=== PATIENT | female | born 1955 | race Caucasian/White ===

== ENCOUNTER 2023-04-04 08:57 | Day surgery (SDC) | payer MEDICARE, BC, SELFPAY ==
[2023-04-04] VITALS (42 sets, daily range): BP systolic 106–220; BP diastolic 62–120; PULSE 53–70; RESP 12–20; TEMP 35.8–36.7; O2SAT 89–100; BMI 31.2; BMI 30.9
--- NOTE | 2023-04-04 09:25 | ED_ITS ---
HPI - Fall General Time Seen by Provider: 09:25 Date Seen: 04/04/23 Chief Complaint: Fall/Minor Trauma Stated Complaint: Fall Time Seen by Provider: 04/04/23 09:18 Source: patient, family and RN notes reviewed Mode of arrival: ambulatory Limitations: no limitations History of Present Illness HPI Narrative: This 67-year-old female is coming to the ER with bilateral wrist trauma, some neck pain after falling down about 9 [address]ed steps. They have an old house, narrow steep stairs. She was tripped by her dog, did go headfirst down the stairs, hit her head on the tile floor on the landing. She states her neck just generally hurts. Both of her wrists hurt. She did hit the right front of her forehead and her cheek bone. She is really having no headache, no visual changes. Her wrists hurt but there is no numbness tingling. She is having no difficulty breathing, no chest pain. No back pain below the neck. Her lower extremities are causing no pain issues whatsoever. She does not drink any alcohol, no mood altering substances, no illicit drug use. She was feeling tired this morning, they at a [employer] green party at their house last night and was tired from that. Internal trauma team activation was called. Patient was ambulatory into the ED of her own accord. She states she probably would not come in except for her wrists. Her came out when he her the fall. There is no reported loss of consciousness. Patient states she knows she has hypertension but does not treated, is not taking anything for it. Otherwise denies any chronic medical issues. complaint: fall Fall witnessed: no Place fall occurred: home Loss of consciousness: No Related Data Previous Rx's Medication Instructions Recorded acetaminophen 500 mg tablet 500 - 1,000 mg (1 - 2 x 500 mg) PO 04/04/23 (Acetaminophen Extra Strength) Q6H PRN pain #60 tabs oxycodone 5 mg tablet 5 mg PO Q4H PRN pain #20 tabs 04/04/23 Allergies Allergy/AdvReac Type Severity Reaction Status Date / Time No Known Drug Allergies Allergy Verified 04/04/23 09:12 Review of Systems Status of ROS: Reports: 6 or more systems reviewed and unremarkable except as noted in History and below PFSH PFSH Social History Smoking Status: Never smoker How often do you have a drink containing alcohol: never AUDIT-C Alcohol total score: 0 Non-prescribed substance use: denies use Exam Const: Vital Signs, click to edit/add: Vital Signs - 24 hr 04/04/23 09:10 04/04/23 09:11 04/04/23 09:12 Temperature 97.6 F Pulse Rate 61 61 Pulse Rate [Pulse Oximeter] 63 Respiratory Rate 20 Blood Pressure 177/120 H Blood Pressure [Ri ght Upper Arm] 177/89 H Pulse Oximetry 97 97 99 Oxygen Delivery Me thod Room Air 04/04/23 09:12 04/04/23 09:15 04/04/23 09:22 Temperature Pulse Rate 59 L 59 L 64 Pulse Rate [Pulse Oximeter] Respiratory Rate Blood Pressure 168/90 H 176/95 H Blood Pressure [Ri ght Upper Arm] Pulse Oximetry 99 97 96 Oxygen Delivery Me thod 04/04/23 09:30 04/04/23 09:32 04/04/23 09:45 Temperature Pulse Rate 63 62 65 Pulse Rate [Pulse Oximeter] Respiratory Rate Blood Pressure 198/104 H Blood Pressure [Ri ght Upper Arm] Pulse Oximetry 97 98 98 Oxygen Delivery Me thod 04/04/23 09:54 04/04/23 10:00 04/04/23 10:05 Temperature Pulse Rate 60 66 62 Pulse Rate [Pulse Oximeter] Respiratory Rate Blood Pressure Blood Pressure [Ri ght Upper Arm] Pulse Oximetry 96 98 98 Oxygen Delivery Me thod 04/04/23 10:14 04/04/23 10:15 04/04/23 10:30 Temperature Pulse Rate 62 66 63 Pulse Rate [Pulse Oximeter] Respiratory Rate Blood Pressure Blood Pressure [Ri ght Upper Arm] Pulse Oximetry 98 98 97 Oxygen Delivery Me thod 04/04/23 10:54 04/04/23 10:55 04/04/23 11:00 Temperature Pulse Rate 64 65 57 L Pulse Rate [Pulse Oximeter] Respiratory Rate Blood Pressure 172/93 H Blood Pressure [Ri ght Upper Arm] Pulse Oximetry 98 97 95 Oxygen Delivery Me thod 04/04/23 11:02 04/04/23 11:11 04/04/23 11:15 Temperature Pulse Rate 59 L 62 59 L Pulse Rate [Pulse Oximeter] Respiratory Rate Blood Pressure 158/88 H 157/82 H Blood Pressure [Ri ght Upper Arm] Pulse Oximetry 95 97 97 Oxygen Delivery Me thod 04/04/23 11:21 04/04/23 11:30 04/04/23 11:31 Temperature Pulse Rate 70 69 67 Pulse Rate [Pulse Oximeter] Respiratory Rate Blood Pressure 174/97 H 160/98 H Blood Pressure [Ri ght Upper Arm] Pulse Oximetry 97 98 97 Oxygen Delivery Me thod Patient's GCS is 15/15, she is alert, interactive, no apparent distress. Nursing staff have ice packs on her wrist. Pupils are equal round reactive, sclerae clear, extraocular muscles intact. She has a right frontal forehead hematoma developing with raised ecchymotic area. She has got abrasion that is superficial, non bleeding over her right zygomatic arch, is palpably tender a long the infraorbital ridge over the zygomatic arch. No drainage from nares or ear canals. TMJs are nontender, she can open and close the jaw without any difficulty. No midline tenderness over neck, no known definitive reproducible tenderness but she states her neck is sore, have asked patient to just hold her neck in position of comfort and not try to move. She is not altered, do trust that she will hold neck and position of comfort. Was able to place my a hand underneath her back, no midline tenderness throughout her spine. Lungs are clear, good air entry. CV regular rate and rhythm, no murmur, normal S1-S2, no S3-S4. Clavicle shoulders nontender, nontender through her arms until her wrist. There is some palpable swelling over the wrist area. Neurovascular is intact distally in the fingers. Abdomen is soft, nontender, no rebound or guarding, no organomegaly. She is mobilizing lower extremities, no visible traumatic change noted. Documenting provider has reviewed patient's vital signs: yes Course Course ED Course: Discussed pain management with patient. She would like something. Will try some IV Toradol to start, 15 mg. We will be getting facial CT, head CT and cervical spine CT. She will have x-rays of both wrists. She will continue to ice the wrist. Will get baseline CBC and basic metabolic panel. Need to rule out facial trauma in fracture, any intracranial trauma as well as cervical spine trauma. Need to rule out wrist fractures. She is currently hemodynamically stable. Do not feel she needs emergent and imminent transfer to a tertiary trauma center at this point. Will continue to monitor her closely. Reevaluation(s) Time of Reevaluation #1: 10:18 Reevaluation #1: Per nursing staff, patient is requiring something stronger for pain. Will put her on pulse oximetry, give her some IV Zofran and give her some IV fentanyl. Awaiting imaging to be done. Consultations Consultation #1: Have spoken with Dr. Zaragoza. We will find out when this patient last date. His PA is going to come over and help splint. It is possible that they could do surgery on her later today or it will be Tuesday if not. Did subsequently go in with the PA and talk to the patient, explained both of her wrists were fractured. Did update her that her head CT is fine, need to review her other images. We discussed the rationale for doing surgery on these risks, will minimize her time in immobilization. Will wait for Ortho to let me know if they are doing surgery today or Tuesday. Will get EKG today in [place] she does go to surgery today. Patient has been NPO since last night. Note Melina the orthopedic PA will be applying short-arm splints for the patient. Orthopedics did advise me that they will be planning to do this surgery later this afternoon. Time: 11:08 Vital Signs Vital signs: Initial Vital Signs Pulse Rate 61 04/04/23 09:10 Blood Pressure 177/120 H 04/04/23 09:10 Blood Pressure Mean 139 H 04/04/23 09:10 Pulse Oximetry 97 04/04/23 09:10 Vital Signs Pulse Rate 61 04/04/23 09:10 Blood Pressure 177/120 H 04/04/23 09:10 Pulse Oximetry 97 04/04/23 09:10 Temperature 97.3 F L 04/04/23 20:50 Pulse Rate 63 04/04/23 20:50 Respiratory Rate 16 04/04/23 20:50 Blood Pressure 145/83 H 04/04/23 20:50 Pulse Oximetry 96 04/04/23 20:50 Oxygen Delivery Method Room Air 04/04/23 20:50 Oxygen Flow Rate 2 04/04/23 16:50 Medications Administered Medications: Discontinued Medications Generic Name Dose Route Start Last Admin Trade Name Freq PRN Reason Stop Dose Admin Bupivacaine HCl 5 ml 04/04/23 15:45 04/04/23 15:45 Bupivacaine 0.25% 30 Ml INJECTION 04/04/23 15:46 5 ml ONCE ONE Administration Fentanyl 25 mcg 04/04/23 10:17 04/04/23 10:27 Fentanyl 100 Mcg/2 Ml Inj IVP 04/04/23 10:18 25 mcg ONCE ONE Administration Fentanyl 50 - 100 mcg 04/04/23 13:26 04/04/23 13:53 Fentanyl 100 Mcg/2 Ml Inj IVP 04/04/23 13:27 50 mcg ONCE ONE Administration Cefazolin Sodium 2 gm/ Sodium 100 mls @ 200 mls/hr 04/04/23 12:59 04/04/23 14:17 Chloride IVPB 04/04/23 13:00 200 mls/hr ONCE ONE Administration Lactated Ringer's 1,000 mls @ 75 mls/hr 04/04/23 17:13 04/04/23 18:03 Lactated Ringers 1000 Ml IV 75 mls/hr .[id number] GARETT Administration Ketorolac Tromethamine 15 mg 04/04/23 09:25 04/04/23 09:48 Ketorolac 15 Mg/Ml Inj IVP 04/04/23 09:26 15 mg ONCE ONE Administration Lidocaine/Epinephrine 5 ml 04/04/23 15:45 04/04/23 15:45 Lidocaine 1%-Epi 1:100,000 20 Ml INFILTRATI 04/04/23 15:46 5 ml ONCE ONE Administration Midazolam HCl 1 - 2 mg 04/04/23 13:26 04/04/23 13:53 Midazolam Hcl 1 Mg/Ml Inj IVP 04/04/23 13:27 2 mg ONCE ONE Administration Ondansetron HCl 4 mg 04/04/23 10:17 04/04/23 10:23 Ondansetron 2 Mg/Ml Inj IVP 04/04/23 10:18 4 mg ONCE ONE Administration Sennosides 2 tab 04/04/23 21:00 04/04/23 21:27 Sennosides 1 Tab Tablet PO Not Given BID GARETT MDM - Fall Lab Data Attestation: I reviewed the patient's lab results. Labs: Lab Results 04/04/23 Range/Units 09:46 WBC 5.14 (4.50-11.00) K/uL RBC 3.97 L (4.00-5.20) m/uL Hgb 12.2 (12.0-16.0) gm/dL Hct 36.2 (33.0-51.0) % MCV 91 (80-100) fL MCH 31 (26-34) pg MCHC 34 (32-36) gm/dL RDW Coeff of Beto 12.3 (11.5-15.5) % Plt Count 207 (140-440) K/uL Neut % (Auto) 71.6 (42.0-72.0) % Lymph % (Auto) 18.1 L (20-44) % Loving % (Auto) 7.2 (0.0-11.0) % Eos % (Auto) 2.3 (0.0-7.0) % Baso % (Auto) 0.6 (0.0-3.0) % Neut # (Auto) 3.68 (1.7-7.0) K/uL Lymph # (Auto) 0.90 (0.90-2.90) K/uL Loving # (Auto) 0.40 (0.00-0.90) K/UL Eos # (Auto) 0.12 (0.00-0.50) K/uL Baso # (Auto) 0.03 (0.00-0.30) K/uL Abs Immat Gran (auto) 0.01 (0.00-0.30) K/uL Imm/Tot Granulo (auto) 0.2 % Sodium 139 (135-149) mmol/L Potassium 3.3 L (3.6-5.1) mmol/L Chloride 109 (96-114) mmol/L Carbon Dioxide 24 (20-32) mmol/L Anion Gap 6 L (7-15) mEq/L BUN 17 (7-30) mg/dL Creatinine 0.6 (0.5-1.5) mg/dL Estimated Creat Clear 47.79 Estimated GFR 99 ml/min Glucose 103 (60-115) mg/dL Calcium 8.7 (8.4-10.6) mg/dL Imaging Data CT scan - head: Attestation: I have reviewed the pertinent imaging results. Radiologist's impression: Patient: Katherine Ricardo MR#: [id number] : 1955 Acct:[id number] Loc: ED Service Date: 04/04/[address]: Ordering Physician: Inga Oliver M.D. Date of Service: 04/04/23 Procedure(s): CT head/brain wo con Accession Number(s): [id number] cc: Provider,Not a Local; Inga Oliver M.D.~ CT HEAD WITHOUT CONTRAST. COMPARISON: NONE INDICATION: FALL, HIT HEAD TECHNIQUE: ROUTINE NONCONTRAST CT BRAIN FINDINGS: NO INTRACRANIAL HEMORRHAGE, MASS OR MASS EFFECT. RIGHT FRONTAL SCALP HEMATOMA. NO SKULL FRACTURE. INCIDENTAL EMPTY SELLA TURCICA NOTED. IMPRESSION: RIGHT FRONTAL SCALP HEMATOMA. NO INTRACRANIAL HEMORRHAGE. Dictated By: Serafin Phan M.D. Signed By: <Electronically signed by Serafin Phan M.D.> 04/04/[address] cervical spine: Attestation: I have reviewed the pertinent imaging results. Radiologist's impression: Patient: Katherine Ricardo MR#: [id number] : 1955 Acct:[id number] Loc: ED Service Date: 04/04/[address]: Ordering Physician: Inga Oliver M.D. Date of Service: 04/04/23 Procedure(s): CT cervical spine wo con Accession Number(s): [id number] cc: Provider,Not a Local; Inga Oliver M.D.~ CERVICAL SPINE CT, NONCONTRAST INDICATION: FALL, NECK PAIN TECHNIQUE: ROUTINE NONCONTRAST CT CERVICAL SPINE COMPARISON: NONE FINDINGS: THE ODONTOID IS INTACT. NO VERTEBRAL BODY COMPRESSION FRACTURE OR FACET MALALIGNMENT. 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 THE OCCIPITAL CONDYLES AND ANTERIOR ARCH OF C1 ARE MAINTAINED. NO SPINOUS PROCESS FRACTURE. NO APICAL PNEUMOTHORAX. CALCIFIED LEFT THYROID LOBE NODULE. NO CERVICAL ADENOPATHY. IMPRESSION: NO CERVICAL SPINE FRACTURE. LEFT THYROID LOBE NODULE. NONEMERGENT THYROID ULTRASOUND RECOMMENDED. Dictated By: Serafin Phan M.D. Signed By: <Electronically signed by Serafin Phan M.D.> 04/04/[address] facial bones: Attestation: I have reviewed the pertinent imaging results. Radiologist's impression: [place] [address] CT Scan Report Patient: Katherine Ricardo MR#: [id number] : 1955 Acct:[id number] Loc: ED Service Date: 04/04/[address]: Ordering Physician: Inga Oliver M.D. Date of Service: 04/04/23 Procedure(s): CT facial bones wo con Accession Number(s): [id number] cc: Provider,Not a Local; Inga Oliver M.D.~ CT FACIAL BONES WITHOUT CONTRAST. INDICATION: FALL, PAIN. COMPARISON: NONE. PROCEDURE: ROUTINE NON-CONTRAST CT FACIAL BONES. FINDINGS: THERE IS A RIGHT FRONTAL SCALP HEMATOMA. NO FRACTURE. INTACT TEMPORAL BONES. INTACT MIDDLE EAR CAVITIES AND MASTOID AIR CELLS. SINUSES ARE CLEAR. NO FACIAL BONE FRACTURE IS PRESENT. CHRONIC CHANGES AT THE RIGHT TMJ. IMPRESSION: NO FACIAL BONE FRACTURE. RIGHT FRONTAL SCALP HEMATOMA. XR wrists: Attestation: I have reviewed the pertinent imaging results. My impression: See bilateral wrist fractures on my preliminary review. Radiologist's impression: RIGHT WRIST THREE VIEWS. COMPARISON: NONE INDICATION: FALL, PAIN FINDINGS: THERE IS A DORSALLY IMPACTED FRACTURE OF THE DISTAL RADIAL METAPHYSIS. ADDITIONAL FRACTURE OF THE DISTAL ULNA NOTED ABOVE METAPHYSIS INVOLVING THE DISTAL DIAPHYSIS. DEGENERATIVE CHANGES ARE PRESENT AT THE 1ST CARPOMETACARPAL JOINT WITH HYPERTROPHIC SPURRING. IMPRESSION: DORSALLY IMPACTED DISTAL RADIAL METAPHYSEAL FRACTURE AND DISTAL ULNAR DIAPHYSEAL FRACTURE. LEFT WRIST THREE VIEWS COMPARISON: NONE INDICATION: FALL, PAIN FINDINGS: THERE IS A DORSALLY IMPACTED DISTAL RADIAL METAPHYSEAL FRACTURE. ADDITIONAL FRACTURE AT THE ULNAR STYLOID IS ALSO SUSPECTED. DEGENERATIVE CHANGES ARE PRESENT AT THE 1ST CARPOMETACARPAL JOINT. SOFT TISSUE SWELLING NOTED. IMPRESSION: DORSALLY IMPACTED DISTAL RADIAL METAPHYSEAL FRACTURE AND POSSIBLE FRACTURE AT THE ULNAR STYLOID. ECG Data Attestation: I personally reviewed and interpreted this ECG as follows: (Normal sinus rhythm, 63 beats per minute. No concerning change on this EKG, some mild artifact seen. QT corrected 433 milliseconds.) ECG interpretation date: 04/04/23 ECG interpretation time: 11:52 Prior ECG tracings: not available for review Critical Care Time Critical Care Time Critical Care Time: No Discharge Plan Discharge Clinical Impression: Hematoma of frontal scalp Qualifiers: Encounter type: initial encounter Qualified Code(s): S00.03XA - Contusion of scalp, initial encounter Closed fracture of both wrists Qualifiers: Encounter type: initial encounter Qualified Code(s): S62.101A - Fracture of unspecified carpal bone, right wrist, initial encounter for closed fracture Fall Qualifiers: Encounter type: initial encounter Qualified Code(s): W19.XXXA - Unspecified fall, initial encounter Patient Disposition: XFER to OR Condition: Stable
[2023-04-04] MEDS: KETOROLAC 15 MG/ML inj IVP (09:48)
[2023-04-04 10:08] LABS: Basophils Absolute Auto 0.03 K/uL (0.00-0.30); Basophils Percent Auto 0.6 % (0.0-3.0); Eosinophils Absolute Auto 0.12 K/uL (0.00-0.50); Eosinophils Percent Auto 2.3 % (0.0-7.0); Hematocrit 36.2 % (33.0-51.0); Hemoglobin* 12.2 gm/dL (12.0-16.0); Immature Granulocytes Abs Auto 0.01 K/uL (0.00-0.30); Immature Granulocytes Pct Auto 0.2 %; Lymphocytes Percent Auto 18.1 % (20-44); Mean Corpuscular HGB Conc 34 gm/dL (32-36); Mean Corpuscular Hemoglobin 31 pg (26-34); Mean Corpuscular Volume 91 fL (80-100); Monocytes Percent Auto 7.2 % (0.0-11.0); Neutrophils Absolute Auto 3.68 K/uL (1.7-7.0); Neutrophils Percent Auto 71.6 % (42.0-72.0); Platelet Count* 207 K/uL (140-440); RDW Coefficient of Variation % 12.3 % (11.5-15.5); Red Blood Count 3.97 m/uL (4.00-5.20); White Blood Count* 5.14 K/uL (4.50-11.00)
[2023-04-04 10:13] LABS: Chloride* 109 mmol/L (96-114); Sodium* 139 mmol/L (135-149)
[2023-04-04 10:14] LABS: Potassium* 3.3 mmol/L (3.6-5.1)
[2023-04-04 10:15] LABS: Slide Review Reflex No
[2023-04-04 10:16] LABS: Anion Gap 6 mEq/L (7-15); Blood Urea Nitrogen* 17 mg/dL (7-30); Carbon Dioxide* 24 mmol/L (20-32); Creatinine* 0.6 mg/dL (0.5-1.5); Est. Creatinine Clearance* 47.79; Estimated Glomerular Filt Rate 99 ml/min
[2023-04-04 10:17] LABS: Calcium* 8.7 mg/dL (8.4-10.6); Glucose* 103 mg/dL (60-115)
[2023-04-04] MEDS: ONDANSETRON 2 MG/ML inj 4 MG IVP (10:23)
[2023-04-04] MEDS: fentaNYL 100 MCG/2 ML inj 25 MCG IVP (10:27)
--- NOTE | 2023-04-04 13:30 | XR_ITS ---
Patient: DIANA HERNANDEZ Facility:?[facility] Patient ID:?[id number] Site Patient ID:?[id number]. Site :?1955 Study:?XRay-Extremity Right WRIST INTRA OP-04/04/2023 6:50:51 PM Ordering Physician:ELIANE Final Report: Indication: ORIF RT WRIST Technique: Two fluoroscopic images of the right wrist. Fluoroscopic time 15.6 seconds. IMPRESSION: Fluoroscopic guidance for open reduction internal fixation of distal radial fracture. Dictated by Serafin Phan MD @ 04/08/2023 6:09:15 AM Signed by:?Serafin Phan MD @04/08/2023 6:09:15 AM (Electronic Signature)
--- NOTE | 2023-04-04 13:30 | XR_ITS ---
Patient: DIANA HERNANDEZ Facility:?[facility] Patient ID:?[id number] Site Patient ID:?[id number]. Site :?1955 Study:?XRay-Extremity Left WRIST INTRA OP-04/04/2023 6:48:13 PM Ordering Physician:ELIANE Final Report: Indication: ORIF left wrist Technique: Five fluoroscopic images of the left wrist. Fluoroscopic time 32.2 seconds. IMPRESSION: Intraoperative fluoroscopic guidance for open reduction internal fixation of distal radial fracture. Dictated by Serafin Phan MD @ 04/08/2023 6:07:34 AM Signed by:?Serafin Pahn MD @04/08/2023 6:07:34 AM (Electronic Signature)
[2023-04-04] MEDS: MIDAZOLAM HCL 1 MG/ML inj IVP (13:53)
[2023-04-04] MEDS: fentaNYL 100 MCG/2 ML inj IVP (13:53)
--- NOTE | 2023-04-04 13:54 | SUR.PREOP ---
TIME?OUT:?1352 PT/RN/MDA?VERIFICATION?OF?SURGICAL?SITE,?PROCEDURE,?AND?CONSENT OBTAINED?PRIOR?TO?INVASIVE?PROCEDURE. all in agreement.
--- NOTE | 2023-04-04 14:16 | W.PM.NB ---
Nerve Block Nerve Block Time Seen by Provider: 13:54 Date Seen: 04/04/23 Type of block requested by surgeon for post-operative analgesia: axillary Side: right Time out performed: Yes Verification of patient name: Yes Verification of date of : Yes Site marking: site marked Name of person performing procedure: Geovanni Continuous monitoring Was continuous monitoring of O2 sat, B/P, bias binding folder, recorded every 15 minutes?: Yes Procedure Checklist: sterile prep, needles and gloves Ultrasound guided. Images saved: Yes Medications given in 5ml increments after negative aspiration: Ropivicaine %: 0.5 mL: 30 Needle gauge: 22 Patient tolerated procedure well: Yes Additional comments: Needle noted adjacent to nerve Block Charges Block Charge (with Pro Fee): Brachial Plexus Use of Ultrasound Machine for Block: Yes- US Guidance/pain block
[2023-04-04] MEDS: CEFAZOLIN 2 GM in 0.9 % SODIUM CHLORIDE Mini-bag 100 ML IVPB (14:17)
--- NOTE | 2023-04-04 15:41 | P.ORPRC_ITS ---
Procedure Note Date of procedure: 04/04/23 Procedure: PREOPERATIVE DIAGNOSES: 1. Left distal radius fracture - displaced, extra-articular 2. Right distal radius fracture - displaced, extra-articular 3. Right distal ulnar fracture POSTOPERATIVE DIAGNOSES: 1. Left distal radius fracture - displaced, extra-articular 2. Right distal radius fracture - displaced, extra-articular 3. Right distal ulnar fracture NAME OF OPERATION: 1. Left distal radius open reduction internal fixation (extra-articular, 2 part fracture) 2. Right distal radius fracture open reduction internal fixation (performed simultaneously by Dr. Ortiz and dictated separately). SURGEON: Jd Escalante MD [employer] REPAIRER: Melina Winston P.A.-C. - An per diem physical therapist assistant was critical for this case to aide in patient positioning, limb manipulation, tissue retraction, closure, and splinting. ANESTHESIA: General with right upper extremity regional nerve block IMPLANTS: Mariella [employer] DVR Crosslock distal radius locking plate with 2.7mm threaded and nonthreaded locking pegs and 2.7mm proximal nonlocking screws. TOURNIQUET: 53 minutes at 250 mmHg. INDICATIONS: The patient is a pleasant, 67-year-old female who sustained bilateral wrist injuries after a fall. She was subsequently seen in the [facility] Emergency Department, where x-rays revealed a closed, displaced left distal radius fracture; a closed, displaced right distal radius fracture; and a mildly displaced distal ulna fracture. Given these findings, surgery was recommended to stabilize both distal radius fractures. Prior to surgery the risks and benefits of the procedure were discussed with patient, all questions were answered, and informed consent was obtained. FINDINGS: Closed, displaced, extra-articular left distal radius fracture. PROCEDURE: Patient was seen preoperatively, and operative sites were marked. A right upper extremity regional nerve block was performed by anesthesia staff. The patient was then brought to the operating room and placed supine on the operating table. General anesthesia was obtained the patient was provided with 2 g of IV Ancef preoperatively for prophylaxis. The left upper extremity was prepped and draped in usual sterile fashion. A surgical time-out was performed confirming patient identity, surgical site, and surgical procedure. The left operative extremity was exsanguinated, and the tourniquet inflated to 250 mmHg. A longitudinal incision was made overlying the FCR tendon. The sheath of the FCR tendon was incised in line with the surgical incision, and the tendon retracted ulnarly. The deep fascial sheath was also released in line with the surgical incision. The FPL was retracted ulnarly and the pronator quadratus was sharply released along its radial and distal margins, subperiosteally elevated, and retracted ulnarly. The fracture was irrigated and cleared of interposed periosteum and fracture hematoma. A reduction was performed and the appropriate plate was selected. Temporary stabilization allowed C-arm fluoroscopy to confirm proper fracture reduction and plate positioning. The proximal oblong hole was filled with a nonlocking screw followed by multiple distal locking pegs being careful to keep these in subchondral bone and extraarticular. Finally, the remaining proximal shaft screws were drilled and placed. Fluoroscopic imaging confirmed near anatomic reduction of the fracture with good placement and length of the screws. At this stage, the wound was thoroughly irrigated again with normal saline. The pronator quadratus was repaired over the plate with 3-0 Vicryl [id number] interrupted sutures. The tourniquet was released and hemostasis was achieved with electrocautery. Closure was then completed with 3-0 Vicryl for the subcutaneous, and 4-0 statafix for subcuticular closure. Subcutaneous tissues were then injected with 0.25% Marcaine. Sterile dressings were applied, followed by application of a short-arm splint. After the right distal radius open reduction internal fixation was completed by Dr. Ortiz, the patient was awoken from anesthesia and transferred to PACU in stable condition. PLAN: 1. Elevate operative extremity. 2. Ice, acetaminophen, or ibuprofen as needed for pain control. 3. Oxycodone as needed for more severe pain 4. No weight-bearing on either upper extremity. 5. Follow up in Orthopedic Clinic in 2 weeks for wound check and splint removal.
[2023-04-04] MEDS: BUPIVACAINE 0.25% 30 ML 5 ML INJECTION (15:45)
--- NOTE | 2023-04-04 15:49 | W.ANESCHARGE ---
Anesthesia Charges Start Date/Time Anesthesia Start Date: 04/04/23 Anesthesia Start Time: 14:04 Stop Date/Time Anesthesia Stop Date: 04/04/23 Anesthesia Stop Time: 16:11
--- NOTE | 2023-04-04 16:16 | P.ORPRC_ITS ---
Procedure Note Date of procedure: 04/04/23 Procedure: PREOPERATIVE DIAGNOSES: 1. Bilateral distal radius fracture extra-articular, comminuted, dorsally angulated and displaced. POSTOPERATIVE DIAGNOSES: 1. Bilateral distal radius fracture extra-articular, comminuted, dorsally angul ated and displaced. NAME OF OPERATION: 1. Right distal radius open reduction with internal fixation of extra-articular dorsally angulated and displaced distal radius fracture 2. Right distal ulna metadiaphyseal fracture, closed treatment. 2. 43783 - intraoperative fluoroscopy up to 1 hour. * of note, this was a bilateral distal radius ORIF done simultaneously with the 2 surgeons and 2 assistants. Each team operating independently on each side. I (and my team) did the right distal radius ORIF. SURGEON: Devon Ortiz MD HOSPITAL SECRETARY: Kelli Micehle PA-C - Of note, an assistant professor of geography was critical for this case to aide in patient positioning, limb manipulation, tissue retraction, closure, and splinting. ANESTHESIA: Supraclavicular block IMPLANTS: Arthrex distal radius locking plate with 2.7mm distal locking pegs and 3.5mm proximal nonlocking and locking screws. TOURNIQUET: 34 minutes at 225 torr. INDICATIONS: The patient is a pleasant, 67-year-old female who sustained a right wrist injury after a fall. They had difficulty with use of the extremity and deformity. Workup included xrays which revealed an unstable fracture. Given these findings, surgery was recommended to stablize the fracture. FINDINGS: Closed, dorsally angulated and displaced mildly comminuted transverse metaphyseal distal radius fracture. Also a closed, ulnar diaphyseal oblique fracture. This was treated closed. It was well aligned following the distal radius ORIF. PROCEDURE: Following a thorough discussion of risks, benefits, and alternatives, consent was obtained and the operative extremity was marked. The patient was brought to the operating room and placed supine on the operating table. Induction of anesthesia was achieved. Appropriate time out was performed identifying proper patient, site and procedure. 2 g IV Ancef was administered within 1 hour of incision preoperatively. *Again, the left upper extremity distal radius ORIF was being performed by Dr. Jd Escalante with Melina Winston PA-C assisting. The tourniquet had been up approximately 40 minutes at the time that we began our side. They were able to release the tourniquet approximately 12 minutes later. The right upper extremity was prepped and draped in the appropriate sterile fashion using ChloraPrep prep. The limb was exsanguinated and the tourniquet inflated. A longitudinal incision was made overlying the FCR tendon. Sharp incision through skin and subcutaneous tissue allowed identification of the FCR tendon. The superficial sheath was sharply divided, the tendon retracted ulnarly, and the deep fascial sheath also released. The FPL was retracted ulnarly and the pronator quadratus was sharply released from the radial border of the radius and subperiosteally elevated. The fracture was encountered and cleared of interposed periosteum / fracture hematoma. A reduction was performed and the appropriate plate selected. Temporary stabilization allowed C-arm fluoroscopy to confirm proper fracture reduction and plate positioning. The oblong hole was filled with a nonlocking screw followed by multiple distal locking pegs being careful to keep these in subchondral bone and extraarticular. Finally, the remaining proximal shaft screws were drilled and placed. Fluoroscopic imaging confirmed the improved position and showed the fracture to be stable. At this stage, the wound was thoroughly irrigated with normal saline. Closure performed with 0 Vicryl for the pronator quadratus, followed by deflation of the tourniquet. All major bleeding points were cauterized. Closure was then completed with 3-0 Vicryl for the subcutaneous, and 4-0 statafix for subcuticular closure. Dressings were applied along with a volar/dorsal splint. The patient was awoken from anesthesia and transferred to PACU in stable condition. PLAN: 1. Elevate operative extremity. 2. Ice, acetominphen or ibuprofen PRN. 3. Oxycodone for pain as needed. 4. Follow up with PA visit in 10-12 days. Ideally some type of immobilization (splint or cast) x3 weeks total postop. Then transition of bilateral upper extremity wrist braces. She will benefit from OT referral at that 3 week visit with cast removal.
--- NOTE | 2023-04-04 16:28 | W.ANESCHARGE ---
Anesthesia Charges Start Date/Time Anesthesia Start Date: 04/04/23 Anesthesia Start Time: 14:04 Stop Date/Time Anesthesia Stop Date: 04/04/23 Anesthesia Stop Time: 16:11
[2023-04-04] MEDS: LACTATED RINGERS 1000 ML 1,000 ML 75 ML IV (18:03)
--- NOTE | 2023-04-04 19:22 | PC.NURSE ---
End of shift [id number] ? Pt arrived from PACU at approximately 1650. Pt fatigued, rousable to name. Pt denied pain, SOB, nausea. Pt observed to sleep during shift. Family at bedside. Capillary refill present in bilateral hands. Pt not out of bed during shift. Pt did not eat or drink during shift. ?
--- NOTE | 2023-04-04 21:57 | PC.NURSE ---
Pt discharged at 2146 via private vehicle driven by . Prior to discharge, pt's pain was controlled as she denied pain when asked with no nonverbal signs of pain noted. CWMS to L hand intact. Pt unable to wiggle fingers of R hand due to nerve block administered to R arm prior to surgery today. Capillary refill noted to be less than 3 seconds to bilateral hands. IV to L foot removed prior to discharge. Pt denied nausea when asked prior to discharge and was able to eat 25% of supper along with tolerating ice water. Pt voided 600 mL straw urine and was able to transfer with SBA. Pt noted to be alert & oriented x 4. Pt discharged with sling to R arm and discharge instructions were reviewed prior to discharge. Dressings to bilateral wrists noted to be C/D/I prior to discharge.
--- NOTE | 2023-04-07 09:39 | P.ORCN_ITS ---
History of Present Illness HPI Time Seen by Provider: 12:30 Date Seen: 04/04/23 Consult date: 04/04/23 Requesting physician: Inga Oliver Consult reason: fracture Chief complaint: Fall Narrative: Katherine presented to [facility] ED this morning with bilateral wrist pain post-fall down the stairs after being tripped by her dog. Denies loss of consciousness. Pain is well managed with IV fentanyl. Reports minimal bilateral wrist pain at rest; pain increases with slight movement. Katherine, her and I reviewed her images together, which show bilateral wrist fractures (reference Results section for detailed description). Last ate 2300 on 04/03/2023. Patient denies history of diabetes mellitus. Not taking a blood thinner. Katherine states she has a history of Reflex Sympathetic Dystrophy (also known as Complex Regional Pain Syndrome) post-carpal tunnel release and she is quite concerned this will occur again during the postoperative period. Left hand dominant. Patient also hit her head on the tile floor during this fall. ED Physician ordered facial CT, head CT and cervical spine CT. EKG also pending. [facility] Social History Smoking Status: Never smoker How often do you have a drink containing alcohol: never AUDIT-C Alcohol total score: 0 Non-prescribed substance use: denies use Meds Home Medications and Allergies Allergies Allergy/AdvReac Type Severity Reaction Status Date / Time No Known Drug Allergies Allergy Verified 04/04/23 09:12 Ortho Exam Narrative Exam Narrative: Patient is alert and oriented x3. No acute distress. Converses with non-labored breathing. Bilateral hand/wrists/forearms resting on a pillow on her chest. Bilateral wrist exam: Obvious deformity bilateral wrists. Mild-moderate swelling bilaterally. No ecchymosis. No open wounds. No abrasions. No erythema, induration. Moderate-severe pain over fracture sites. ROM and strength testing deferred for obvious reasons. CMS intact with 2+ radial pulse bilaterally. Sensation confirmed distally. Const Documenting provider has reviewed patient's vital signs: yes Results Diagnostic results Wrist/Hand x-ray: report reviewed and image reviewed (3-view left wrist images were reviewed from [place] [facility] dated 04/04/23. These were ordered by a different physician, were reviewed by me, were corroborated with the radiology report, and show: a closed, acute left distal radial metaphyseal fracture with 25 degrees dorsal angulation.) Additional Comments: Also, 3-view right wrist images were reviewed from [place] dated 04/04/23. These were ordered by a different physician, were reviewed by me, were corroborated with the radiology report, and show: a closed, acute right distal radial metaphyseal fracture with 15 degrees dorsal angulation. Also an acute, closed, moderately displaced distal ulnar diaphyseal fracture. Assessment and Plan Assessment and plan (1) Closed fracture of both wrists: Status: Acute Plan Katherine was placed in bilateral volar short arm wrist splints. She tolerated splint placement well with minimal pain. Patient last ate at 2300 yesterday night. After reviewing Katherine's images with both Dr. Ortiz and Dr. Escalante, surgical intervention is recommended. Tentative surgical time is this mid-afternoon (04/04/23) for left distal radius fracture ORIF with Dr. Escalante and right distal radius ORIF with Dr. Ortiz. Risks and benefits of surgical intervention were discussed including, but not limited to: postoperative infection, injury to blood vessel/nerve/tendon, blood loss and venous thromboembolism. All questions were answered in depth. Given Katherine's history of CRPS, it is possible, she may be at an increased risk of postoperative pain and decreased sensation from post-traumatic nerve injury. Katherine is left hand dominant. It was decided with anesthesia to not perform a left upper extremity nerve block.
== END 2023-04-04 21:46 | disposition home or self-care (01) ==
LOC: ED 11:57 → OR 12:22 → MEDSURG 17:07
PROVIDERS: Emergency Provider Family Medicine; Visit Provider Orthopaedic Surgery Sports Medicine
PROC: (CPT 25575; principal; 2023-04-04 13:30)
DX: S52.552A Other extraarticular fracture of lower end of left radius, initial encounter for closed fracture (principal); S52.551A Other extraarticular fracture of lower end of right radius, initial encounter for closed fracture; S52.691A Other fracture of lower end of right ulna, initial encounter for closed fracture; G89.18 Other acute postprocedural pain; M54.2 Cervicalgia; S00.03XA Contusion of scalp, initial encounter; W10.8XXA Fall (on) (from) other stairs and steps, initial encounter; W01.0XXA Fall on same level from slipping, tripping and stumbling without subsequent striking against object, initial encounter; Y92.018 Other place in single-family (private) house as the place of occurrence of the external cause
CPT/HCPCS: 25607; 01830; 36415; 64415; 70450; 70486; 72125; 73110; 76000; 76942; 80048; 85025; 93005; 94761; 99284; 99285; 99291; A4580; C1713; J0665; J0690; J1100; J1630; J1885; J2250; J2405; J2704; J2795; J3010; J3475; J3490; J7120

== ENCOUNTER 2023-10-05 07:30 | Outpatient (RCR) | payer MEDICARE, BC, SELFPAY ==
--- NOTE | 2023-04-28 18:44 | OT.OPOE ---
OT Outpatient Ortho Eval OT Outpatient Ortho Eval* Start: 04/28/23 13:18 Freq: Status: Active Protocol: Document 04/28/23 13:18 AMB (Rec: 04/28/23 18:43 AMB [id number]) E-signed By Annalee Alves, OTR/L, CLT, PLAN MANAGER OT OP Ortho Eval Details Complexity Complexity Low Insurance Information Insurance Information Medicare B Outpatient History/Precautions Current Condition/Medical Diagnosis Referring Provider Leonid Stratton PA-C Treatment Diagnosis Pain, swelling, weakness and limited AROM in BUE due to BUE DR archibald S/P ORIF Date of Onset DOI and DOS: 04/04/23 Other Precautions Pt is to lift no greater than a coffee cup, working on ROM, no strengthening yet. Other Conditions Pt had CTR 10 years ago and developed CRPS, states it took a long time to heal. PMH (copied from medical chart ): History of open reduction and internal fixation (ORIF) procedure (Acute 04/04/23) Bilateral distal radius ORIF ( 04/04/2023 Dr. Ortiz-Right and Dr. Escalante-Left) Z98.890 - Other specified postprocedural states (ICD-10) Fall (Acute) W19.XXXA - Unspecified fall, initial encounter (ICD-10) Closed fracture of both wrists (Acute) S62.101A - Fracture of unspecified carpal bone, right wrist, initial encounter for closed fracture (ICD-10) S62.102A - Fracture of unspecified carpal bone, left wrist, initial encounter for closed fracture (ICD-10) Hematoma of frontal scalp ( Acute) S00.03XA - Contusion of scalp, initial encounter (ICD-10) Surgical History (Updated @ 16:33 by Leonid tSratton PA-C) History of eye surgery Z98.890 - Other specified postprocedural states (ICD-10) History of carpal tunnel surgery of left wrist (~2012) Z98.890 - Other specified postprocedural states (ICD-10) History of open reduction and internal fixation (ORIF) procedure (04/04/23) Z98.890 - Other specified postprocedural states (ICD-10) Medical/Functional History Medical History Reviewed Yes Prior Level of Function/Mobility Full pain-free use of BUE, plays guitar, enjoys cooking / homemaking, retired sales department clerk Social History Employment Status Retired Hobbies Music Fitness stays active Ortho Subjective Subjective Subjective Pt states she was going to go to the kitchen to make coffee on 04/04/23 when she took a tumble on the stairs. Pt was shocked when she found out she broke both of her wrists, very pleased that she was able to have surgery that same day. Pt states it is difficult to do her self cares and she is not able to do much cooking and cleaning but her is very helpful and supportive. Pt states she really is surprised how little pain she is having, rates pain at 0-1/10, described as aching. Goniometric Comments Goniometric Comments Goniometric Comments 04/28/23 AROM of the RUE Forearm, wrist , hand: Flex: 45 Ext:40 UD:13 RD:15 Pro:30 Sup:70 [place]:Base of 5th digit Composite fist:-.5cm from tip of MF to DPC AROM of the LUE forearm, wrist , hand: Flex: 65 Ext:25 UD:20 RD:15 Pro:45 Sup:70 [place]:Tip of 5th Composite fist: Full Too early for strength testing OT Objective Data Hand Hand Dominance Right Skin/Wounds/Edema Comments 04/28/23 Incisional areas are covered with surgical glue, mild to moderate swelling noted in BUE volar wrists, mild swelling in BUE hands. No s/s of infection, no drainage from incisions. OT Problems Problems Problems Decreased Strength,Decreased Range of Motion,Decreased Dexterity,Pain,Decreased Coordination,Lifting,Gripping, Pinching Other Problems Writing,Opening Containers, Dressing,Computer,Fasteners Patient Potential Good Assessment Assessment Assessment Pt is a very pleasant 67yo referred to OT for weakness, limited ROM and pain BUE hands , wrists and forearms following BUE DR vogel s/p MICHAEL. Pt is having difficulty with all self cares and IADLs secondary to the above. Pt will benefit from skilled OT intervention to address deficits and restore full, pain-free use of BUE. Pt has a very positive attitude along with a great, supportive , she will do well. Occupational Therapy Treatment Plan - OP Potential Rehabilitation Potential Good Goals Goals 1. Pt will be independent and compliant with HEP in order to resume full, pain-free use of the involved UE. 3 weeks 2. Pt will demonstrate full, pain-free AROM of BUE in order to improve ability to grasp and hold. 6 weeks 3. 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 8 weeks. Treatment Plan Treatment Plan Evaluation,Edema Control,Joint Mobilization,Manual Therapy, Wound Care/Scar Management, Therapeutic Exercise, Therapeutic Activities,Self Care/Home Management,Education Expected Frequency 1-2x Week Expected Duration 8-10 Weeks Home Program Home Program Home Program Initiated Home Program Specifics 04/28/23 Pt was provided with training and practice in HEP for non resisted mm pumps for edema reduction and AROM of BUE fingers, wrists and forearms in order to restore full, functional AROM as well as independence with ADLs and IADLs. Following demo, pt is able to complete exs with minimal cues. Pt was provided with written inst for use at home as well. Recertification Information Recertification Information Initial Certification Date 04/28/23 Recertification Due Date 07/27/23 Reasons to Continue Skilled Therapy Initiated OT to address pain, swelling, weakness, and limited AROM in BUE secondary to BUE DR archibald s/p [facility] Rehabilitation Potential Good Click To Default 'Per treatment plan' Per treatment plan Continued Plan of Care and Interventions Per treatment plan Provider Signature Shows Agreement With POC & Medical Necessity Physician Comment/Change Comment or Changes Physician NPI Number #
--- NOTE | 2023-05-26 09:34 | PT.OPEX ---
PT [place] Outpatient Eval PT [facility] Outpatient Eval Start: 05/26/23 07:13 Freq: Status: Active Protocol: Document 05/26/23 07:14 TRINITY (Rec: 05/26/23 09:21 LUCYCrys [id number]) E-signed By Laskhmi Greer PT Physical Therapy Outpatient Evaluation Insurance Information Recert Due Date 08/20/23 Insurance Name Medicare B Medical Diagnosis Abnormality of Gait with mobility deficit Vertigo Treating Diagnosis Functional Strength Deficit Impaired ease of ADL's and Self Cares Fall Risk Vertigo Referring MD Leonid Stratton Subjective Subjective Katherine reports having fallen on the stairs on 04/04/23. She had a frontal cranial hematoma, and fractured blanca wrists. She was able to have surgery the same day, blanca ORIF. She denies having any injurious fall in her past; prior surgeries include eye cataract surgery and carpel tunnel surgery. She is very active with playing guitar, cooking, home making - all of which have been significantly reduced with blanca wrist surgeries. She does not use AD for gait. Since her fall, she states she has felt off balance with quick turns, fast position changes and head turns. She feels off in my head and dizzy. She states she is still trying to be as active as possible, trying to resume some light house cleaning and cooking. Still not driving yet due to wrists. Casts were removed about 3 weeks ago - OT/Bryanna says I am progressing well. She reports feeling general stiffness and weakness due to inactivity with blanca wrist casting, eager to resume all home making tasks, but feels unstable and unsafe due to this dizziness. Pain Comments more of a generalized ache Date of Last Physician Visit 05/24/23 Current Work Status Retired Occupation Retired [employer] Helper Precautions Treatment Precautions/Contraindications Arthritis Osteopenia Weight Bearing Status Full Weight Bearing Therapy Limitations/Systems Review Vision Assessment Assessment/Impression 68 yo female with DX of Abnormality of gait and mobility deficit, Vertigo. She arrived to dept via IND ambulation without any AD. She recently had blanca wrist ORIF from a fall on 04/04/23, casts have been removed s/p 3 weeks. She is seeing OT for UE tasks and self cares. She ambulates with WBOS, reduced toe push off and reduced blanca arm swing. She moves her head slowly, stating she has found this reduces her symptoms of imbalance. She denies any specific pattern of vertigo, but seems to increase with all head movements. She states she is sleeping well, drinking plenty of water, has never experienced this before. She has good eye vergence, good CX AROM and appropriate visual tracking. With assessment, she had a (+) Rt Tererro-Hallpike, therefore, this was treated today. She will benefit from continued skilled physical therapy to provide continued assessment and treatment of vestibular canals, LE strength and balance training. Thank you for this referral. Plan of Care Rehabilitation Potential Good Physical Therapy Goals In 8-10 visits, Katherine will be able to report: 1. Reduced Vertigo sensation by at least 50% with daily ADL 's and self-cares 2. Reduced Dizziness Handicap Inventory from 46/100 to at least 20/100 3. Resume at least 75% of home cooking and house cleaning tasks (related to progress of blanca wrist injuries as well) 4. Feel comfortable walking outdoors by herself to resume walk for ex 30 min 3-4X/Week 5. Return to [facility] with all community activities, home making and self-cares. Coordination/Communication With Referral Source Treatment Plan/Direct Interventions Neuromuscular Re-ed,Self-Care/ Home Management,Therapeutic Activities,Therapeutic Exercises Frequency/Duration 1X/Wk for 10 visits Patient Will Be Discharged From Therapy Completion of LTG(s),Skills Plateau,Independent w/HEP, Independently Progressing Evaluation Billing Untimed Code Treatment Minutes 27 Complexity Moderate Certification Information Initial Certification Date 05/26/23 Ending Certification Date 08/20/23 Provider Signature Shows Agreement With POC & Medical Necessity Physician Signature & Date Requested Please Sign/Date Here Physician Comment/Change : Physician NPI Number #
== END 2023-10-05 12:28 | disposition home or self-care (01) ==
PROVIDERS: Visit Provider Physician Assistant Surgical
DX: S62.102A Fracture of unspecified carpal bone, left wrist, initial encounter for closed fracture (principal); S62.101A Fracture of unspecified carpal bone, right wrist, initial encounter for closed fracture; Z51.89 Encounter for other specified aftercare
CPT/HCPCS: 97110; 97112; 97140; 97162; 97165; 97535; X5282

== ENCOUNTER 2024-07-22 17:23 | Emergency (ER) | payer MEDICARE, BC, SELFPAY ==
--- OUTSIDE RECORDS SUMMARY | 2024-07-22 17:25 | XMS_ITS | Clinical Summary ---
Author Organization [facility] Address [address] [place] [id number] Care Team Providers Care Specification Manager Name Role Phone Keely Crow MD Unavailable [phone] Barbara Meza MD Primary Care Provider Patricia Felicity Eber Unavailable [phone] Allergies No known active allergies Medications No known medications Active Problems Problem Noted Date Diagnosed Date Osteopenia 01/31/2023 Bilateral pseudophakia 03/06/2019 Sensorineural hearing loss, bilateral 05/24/2018 Macular hole of left eye 03/29/2017 Myopia of left eye with astigmatism 08/27/2016 Left thyroid nodule 08/21/2012 Overview (05/23/2017): FNA 12/03 showed benign colloid nodule. follow up ultrasound 2017 showed minimal change; dr ceja recommends follow up ultrasound 2022 and if still no change, never again. 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 Presbyopia 08/30/2005 Myopia of right eye 08/30/2005 VITREOUS DEGENERATION-OS 05/10/2001 ALLERGIES 06/14/2000 Resolved Problems Problem Noted Date Diagnosed Date Resolved Date Screen for colon cancer 12/18/201008/2019 Overview (12/18/2010): Colonoscopy 11/2010 normal repeat in 10 years NECK PAIN 09/30/2000 12/05/2010 Immunizations Immunization Administration Dates Next Due HepA-HepB (Twinrix) 10/29/2004,07/24/2004 Hepatitis A (Adult) 12/11/2008,07/24/2004 Influenza, IIV3 (Age >=3 years) 11/15/19 14,10/31/2012,12/29/2011,01/30/20 03 Influenza, IIV4 11/03/2020,02/28/2019,10/31/2017 Influenza, IIV4 (=>6mos) MDV 11/08/2016 Influenza,CCIIV4 PRESERV FREE 01/01/2017 Td (Age >=7 Years) 02/28/2019,07/24/2004 Tdap 12/11/2008 Zoster (Shingrix-RZV, recombinant) 05/01/2019, Family History Medical History Relation Name Comments No Known Problems Brother Hai Cataracts Father Hypertension Father Other Father brain cancer in early 80s Cancer-breast Mother in 70s/80s Dementia Mother Genetic Other family hx of al ciera~cancer Stroke Paternal Grandmother Hypertension Sister 1 Viola Thyroid Disease Sister 1 Viola s/p Thyroide ctomy Cancer-breast Sister 2 Meena Thyroid Disease Sister 3 My Anesthesia Problem No Family History Blood Disease No Family History Cancer-ovarian No Family History Relation Name Status Comments Brother Hai Alive Father Maternal Grandfather Maternal Grandmother Mother Alive Other Paternal Grandfather Paternal Grandmother Sister 1 Viola Alive Sister 2 Meena Alive Sister 3 My Alive Social History Tobacco Use Types Packs/Day Years Used Date Smoking Tobacco: Never Smokeless Tobacco: Never Tobacco Cessation:Counseling Given: Yes Alcohol Use Standard Drinks/Week Comments Not Currently 0 (1 standard drink = 0.6 oz pur e alcohol) holidays PHQ-2 Answer Date Recorded PHQ-2 TOTAL SCORE 0 01/14/2023 Social Connections Answer Date Recorded Do you often feel lonely or isolated from those around you? 0 01/14/2023 Financial Resource Strain Answer Date R ecorded Difficulty of Paying Living Expenses 3 01/14/2023 Difficulty of Paying Living Expenses Not on file 01/14/2023 Food Insecurity Answer Date Recorded Do you worry your food will run out before you are able to buy more? 1 01/14/2023 Transportation Needs Answer Date Record ed Does lack of transportation keep you from medica l appointments? 1 01/14/2023 Does lack of transportation keep you from work, meetings or getting things that you need? 1 01/14/2023 Housing Stability Answer Date Recorded What is your housing situation today? 1 01/14/2023 Comments No Sex and Gender Information Value Date Recorded Sex Assigned at Not on file Legal Sex Female 6:25 AM BOAT TESTER Gender Identity Not on file Sexual Orientation Not on file Occupation Industry Job Start Date Job End Date Retired Not on file Not on file Not on file Obstetrics History Para Term AB IAB SAB Ectopic Multiple Livin g Live Births 0 0 0 0 0 0 0 0 0 0 Last Filed Vital Signs Vital Sign Reading Time Taken Comments Blood Pressure 128/79 01/14/2023 2:36 PM BOAT TESTER Pulse 56 01/14/2023 2:36 PM BOAT TESTER Temperature 35.9 C (96.7 F) 12/07/2017 12:42 PM CDT Respiratory Rate 16 12/07/2017 2:15 PM CDT Oxygen Saturation 99% 01/14/2023 2:36 PM BOAT TESTER Inhaled Oxygen Concentration - - Weight 81.4 kg (179 lb 6.4 oz) 01/14/2023 2:36 P M BOAT TESTER Height 162.2 cm (5' 3.86) 01/14/2023 2:36 PM CS T Body Mass Index 30.93 01/14/2023 2:36 PM BOAT TESTER Plan of Treatment Health Maintenance Due Date Last Done Comments Hepatitis B series for 19+ ( 3 of 3 - Hep B Twinrix 3-dose series) 03/31/2005 10/29/2004, 07/24/2004 Pneumococcal series for age 50+ (1 of 1 - PCV) 2006 COVID-19 vaccine series ( - 2023- season) 2023 BMI (ht and wt on same day) for age 18+ 01/15/2024 01/14/2023, 11/10/2020, 11/03/2020, Additional history exists Depression screening for age 12+ 01/15/2024 01/14/2023, 10/07/2020, 10/07/2020, Additional history exists Medicare Wellness for age 65+ 01/15/2024 01/14/2023 Mammogram for age 45-75 02/08/2024 02/08/20 23, 01/27/2023, 10/07/2020, Additional history exists Influenza Vaccine (Season Ended) 2024 11/03/2020, 02/28/2019, 10/31/2017, Additional history exists Lipids for age 45-75 10/06/2025 10/06/2020, 02/28/2019, 07/26/2014, Additional history exists Tetanus booster 02/28/2029 02/28/2019, 11/22, 07/24/2004 Colonoscopy through age 75 12/24/203012/24, 12/24/2020, 12/18/2010 RSV vaccine for adults or (1 - 1-dose 75+ series) 04/29/2031 Tdap Completed 12/11/2008 Hepatitis C screening for ag e 18-79 Completed 02/28/2019 Zoster (shingles) series for age 50+ Completed 05/01/2019, 02/28/2019 DEXA/DXA scan for age 65+ Completed 01/27/2023 Medical Devices Implanted Type Area Tube And Rod Straightener Device Identifier Shelf Expiration Date Model / Serial / Lot Iol [place] +15 Acrysof Iq [id number] - [id number] Implanted:Qty: 1 on 04/25/2017 by Epifanio Alfredo MD at [facility] Left: Eye [employer] 06/20/2021 [id number]. 0# / [id number] / Iol [place] +11 Acrysof Iq Sn60wf - [id number] Implanted:Qty: 1 on 12/07/2017 by Epifanio Alfredo MD at [facility] Right: Eye [employer] 08/20/2021 [id number]. 0# / [id number] / Procedures Procedure Name Priority Date/Time Associated Diagnosis Comments XR MAMMO PANTERA UNI ADDL VIEWS RIGHT JUAN M 02/07/2023 2:09 PM BOAT TESTER Abnormal mammogram XR DXA BONE DENSITY 2 SITES AXIAL Routine 01/27/2023 11:21 AM BOAT TESTER Menopause COLONOSCOPY 12/24/2020 8:07 AM CDT LIPID PANEL W REFLEX MEASURED LDL Routine 10/06/2020 8:50 AM CDT Screening, lipid ANTI HCV Routine 02/28/2019 11:44 AM BOAT TESTER Need for hepatitis C screening test from Last 3 Months or Most Recently Relevant to Health Maintenance Results * XR MAMMO PANTERA UNI ADDL VIEWS RIGHT (02/07/2023 2:09 PM BOAT TESTER) Anatomical Region Laterality Modality BREASTS, Breast Right Mammograph y Impressions 02/08/2023 9:03 AM BOAT TESTER Negative additional views of the RIGHT breast. Annual mammography recommended. BI-RADS Category 1: Negative Surinder Duran M.D. Diagnostic/Nuclear Medicine Radiologist [email or web address] / PATIENTS: You will also receive a letter with your examination results in an easy to read format. If you have questions about your results, please contact your referring provider. Narrative 02/08/2023 9:03 AM BOAT TESTER As a result of the Century Cures Act, medical imaging exams and procedure reports are released immediately into your electronic medical record. You may view this report before your referring provider. If you have questions, please contact your health care provider. RIGHT DIGITAL DIAGNOSTIC MAMMOGRAM WITH TOMOSYNTHESIS, 02/07/2023 CLINICAL HISTORY: Follow-up a questionable density mid-outer RIGHT breast seen on 01/27/2023. TECHNIQUE: Spot compression view of the RIGHT breast in the CC and MLO projections. Digital breast tomosynthesis was utilized. COMPARISON: 01/27/2023. BREAST COMPOSITION: The breasts are heterogeneously dense, which may obscure small masses. FINDINGS: No underlying mass. No architectural distortion. No suspicious microcalcifications. Ultrasound is not recommended at this time. Annual mammography is recommended. These findings were discussed briefly with the patient. Cheryl Valero DO MAMMO Final Resu lt * (ABNORMAL) XR DXA BONE DENSITY 2 SITES AXIAL [28134.1] (01/27/2023 11:21 AM BOAT TESTER) Anatomical Region Laterality Modality Spine, HIPS, HIPL, HIPR Other Impressions 01/31/2023 7:59 AM BOAT TESTER Osteopenia. RECOMMENDATIONS: The National Osteoporosis Foundation recommends pharmacologic treatment for patients with T-scores of -2.5 or less, patients with prior history of fragility fractures, or patients with 10-year probability of greater than 3% at hips or greater than 20% of suffering major osteoporotic fractures. Recommend continued optimization of calcium and vitamin D intake through dietary means and/or supplementation and regular exercise. Repeat scan recommended in 3-5 years. Marcelina Alvares PA-C [facility] 01/31/2023 Narrative 01/31/2023 7:59 AM BOAT TESTER For Patients: Results are automatically released to your [facility] account once available, in compliance with federal regulations. This means that you may see your results before your provider has had a chance to review them. Please allow 2-3 business days for your provider to comment on the results. XR DXA Bone Mineral Density (BMD) EXAM LOCATION: [address] [address] PATIENT NAME: Katherine Ricardo DATE OF : 1955 EXAM DATE: 01/27/2023 REQUESTING PROVIDER: Cheryl Valero DO GENDER AT : female HEIGHT: 5' 3.86 (01/14/2023) WEIGHT: 179 lb 6.4 oz (01/14/2023) MENOPAUSAL STATUS: Postmenopausal RACE/ETHNICITY: White RISK FACTORS: White Race CURRENT MEDICATION FOR BONE LOSS: NONE INDICATION: Post-Menopause COMPARISON DATE(S): None DXA scans are compared to prior studies for a patient only when the two (or more) studies were performed on the same scanner. It is not possible to compare data generated on one scanner to data from another because there are not standards in DXA equipment. This applies even if the two scanners are made by the same hypercil core transformer assembler. PROCEDURE: Dual-energy x-ray absorptiometry performed with routine technique. Reporting is completed in the form of a T-score. The T-score represents the standard deviation from peak bone mass based on young healthy adult. A Z-score is used for diagnosis in premenopausal women, and for men under the age of 50. FINDINGS: RESULT LUMBAR SPINE L1 - L4 (EXCLUDE L2) BMD: 1.059 g/cm2 T-Score: - 1.0 Z-Score: + 0.0 Change from prior: None RESULTS FEMUR Left femoral neck BMD: 0.798 g/cm2 T-Score: - 1.7 Z-Score: - 0.5 Change from prior: None Right femoral neck BMD: 0.841 g/cm2 T-Score: - 1.4 Z-Score: - 0.2 Change from prior: None Left hip BMD: 0.881 g/cm2 T-Score: - 1.0 Z-Score: - 0.1 Change from prior: None Right hip BMD: 0.916 g/cm2 T-Score: - 0.7 Z-Score: + 0.2 Change from prior: None WHO criteria: Normal: T-score at or above -1 SD Osteopenia: T-score between -1.1 and -2.4 SD Osteoporosis: T-score at or below -2.5 SD FRAX RISK CALCULATION (USED FOR OSTEOPENIA ONLY): 10-year probability of major osteoporotic fracture: 9.7%. 10-year probability of hip fracture: 1.3%. us Cheryl Valero DO DEXA Final Resu lt * COLONOSCOPY (12/24/2020 8:07 AM CDT) 12/24/2020 8:07 AM CDT Narrative Transcriptions Nikko Ritter MD - 12/24/2020 9:23 AM CDT Patient Name: Katherine Ricardo Procedure Date: 12/24/2020 Gender: Female Date of : 1955 Admit Type: Outpatient Procedure: Colonoscopy Proceduralist: Nikko Ritter MD , Huma Back RN(Nurse) Indications/Pre-Op Diagnosis: Last colonoscopy: November 2010 Medications: Fentanyl 100 micrograms IV, Midazolam 4 mgIV, The level of sedation administered wasmoderate Procedure Description: The patient had risks, benefits and alternatives explained to andgave informed consent. The patient had a stable cardiopulmonary status and judged an adequate candidate for conscious sedation. The Colonoscope was passed through the anus and advanced to thececum, identified by appendiceal orifice and ileocecal valve. Thecolonoscopy was performed without difficulty. The patient tolerated the procedure well. The quality of the bowel preparation was good. The ileocecal valve, appendiceal orifice, and rectum were photographed. Complications: No immediate complications. Estimated Blood Loss & Specimen: Estimated blood loss: none. Specimen collected - None Findings: The perianal and digital rectal examinations were normal. The entire examined colon appeared normal on direct and retroflexion views. Impressions/Post-Op Diagnosis: - The entire examined colon is normal on direct and retroflexionviews. - No specimens collected. Recommendation: - Patient has a contact number available for emergencies. The signsand symptoms of potential delayed complications were discussed with the patient. Return to normal activities tomorrow. Written discharge instructions were provided to the patient. - Resume previous diet. - Continue present medications. - Repeat colonoscopy in 10 years for screening purposes. Moderate Sedation: Moderate (conscious) sedation was administered by the endoscopy nurse and supervised by the endoscopist. The following parameters were monitored: oxygen saturation, heart rate, respiratory rate, blood pressure, adequacy of pulmonary ventilation and reponse to care. Please refer to the patient's medical record flowsheets and nursing notes for moderate sedation details. Total physician intraservice time was 20 minutes. Nikko Ritter MD 12/24/2020 9:23:10 AM This report has been signed electronically. Note Initiated On: 12/24/2020 8:07 AM Procedure Code(s): --- Professional --- 01995, Colonoscopy, flexible; diagnostic, including collection of specimen(s) bybrushing or washing, when performed (separateprocedure) CPT copyright 2020 [employer]. All rights reserved. The codes documented in this report are preliminary and upon owner/operator reviewmay be revised to meet current compliance requirements. Scope In: 8:58:54 AM Scope Withdrawal Time 0 hours 6 minutes 29 seconds Scope Out: 9:17:24 AM Nikko Ritter MD PROCEDURE ORD Final Res ult * (ABNORMAL) LIPID PANEL W REFLEX MEASURED LDL (10/06/2020 8:50 AM CDT) CHOLESTEROL,TOTAL 206(H) 100 - 199 mg/dL 10/06/2020 3:17 PM CDT [facility] TRIGLYCERIDES 44 <150 mg/dL 10/06/2020 3:17 PM CDT [facility] HDL CHOLESTEROL 68 >40 mg/dL 3:17 PM CDT [facility] NON-HDL CHOLESTEROL 138 <145 mg/dl 10/06/2020 3:17 PM CDT [facility] CHOL/HDL RATIO 3.03 <4.50 10/06/2020 3:17 PM CDT [facility] LDL CHOLESTEROL 129 <=130 mg/dL 10/06/2020 3:17 PM CDT [facility] VLDL CHOLESTEROL 9 mg/dL 10/07/19 3:17 PM CDT [facility] PROVIDER ORDERED STATUS RANDOM 10/06/2020 3:17 PM CDT [facility] Blood BLOOD SPECIMEN / Unknown Venipuncture / Unknown 10/06/2020 8:50 AM CDT 10/06/2020 8:55 AM CDT us Geri GUTIÉRREZ CHEMISTRY Final Result [facility] [address] [place] [address], [place] * ANTI HCV (02/28/2019 11:44 AM BOAT TESTER) HEPATITIS C ANTIBODY Non-React kasie Non-React kasie 02/28/2019 7:29 PM BOAT TESTER [facility] Comment:Antibodies to HCV no t detected; does not exclude the possibility of exposure to HCV. Blood BLOOD SPECIMEN / Unknown Venipuncture / Unknown 02/28/2019 11:44 AM BOAT TESTER 02/28/2019 11:44 AM BOAT TESTER us Barbara Meza MD SEND OUTS Final R esult [facility] [address] [place] [address], [place] from Last 3 Months or Most Recently Relevant to Health Maintenance Insurance [facility] MEDICARE [place] ONLY MEDICARE PART B HB ONLY [facility] Advance Directives * Full Code (Latest Code Status on File) Date Activated Date Inactivated Comments 12/07/2017 12:20 PM 12/07/2017 4:37 PM * Full Code Date Activated Date Inactivated Comments 04/25/2017 6:53 AM 04/25/2017 12:02 PM * Full Code Date Activated Date Inactivated Comments 09/13/2016 9:43 AM 09/13/2016 5:27 PM Care Teams Specification Manager Relationship Specialty [place] [id number] [place] [address] PCP - General Family Practice 04/20/17 Keely Crow MD Consulting Physician Cardiovascular Disease 09/06/14 Felicity [place] [address] Audiology 08/02/17
[2024-07-22 17:33] VITALS: BP 177/92; PULSE 62; RESP 18; TEMP 36.6; O2SAT 97; BMI 32.4
--- NOTE | 2024-07-22 17:59 | ED.GENADULT ---
HPI - General Adult General Chief complaint: Hypertension Stated complaint: high Bp Time Seen by Provider: 07/22/24 17:33 History of Present Illness HPI narrative: Patient is a 69 year white female with a history of hypertension, who had been on medicine the past but does not prefer to be on medicine, and has stopped it. She was told by a friend who is an RN at a [employer] that she had elevated blood pressure and should be seen immediately. The patient has no symptoms. She has had some trouble reading lately but otherwise is asymptomatic at this time. She has had no chest pain breathing problem fevers or chills. She is looking for primary care doctor. Related Data Home Medications ?Medication ?Instructions ?Recorded ?Confirmed cholecalciferol (vitamin D3) 50 50 mcg PO QDAY 10/04/23 10/04/23 mcg (2,000 unit) capsule (Vitamin D3) Allergies Allergy/AdvReac Type Severity Reaction Status Date / Time No Known Drug Allergies Allergy Verified 07/22/24 17:32 Review of Systems Status of ROS: Reports: 6 or more systems reviewed and unremarkable except as noted in History and below PFSH PFSH Surgical History History of eye surgery ?Z98.890 - Other specified postprocedural states (ICD-10) History of carpal tunnel surgery of left wrist (~2012) ?Z98.890 - Other specified postprocedural states (ICD-10) History of open reduction and internal fixation (ORIF) procedure (04/04/23) ?Z98.890 - Other specified postprocedural states (ICD-10) Social History Smoking Status: Never smoker How often do you have a drink containing alcohol: never AUDIT-C Alcohol total score: 0 Non-prescribed substance use: denies use Exam Narrative: Exam Narrative: Objective: Patient's blood pressure is 177/92 she is alert orient x3 No neurologic deficit Past history is reviewed. Const: Vital Signs, click to edit/add: Vital Signs - 24 hr 07/22/24 17:33 Temperature 98 F Pulse Rate [Pulse Oximeter] 62 Respiratory Rate 18 Blood Pressure [Ri ght Upper Arm] 177/92 H Pulse Oximetry 97 Oxygen Delivery Me thod Room Air Course Vital Signs Vital signs: Initial Vital Signs Temperature 98 F 07/22/24 17:33 Temperature Source Temporal Artery Scan 07/22/24 17:33 Pulse Rate 62 07/22/24 17:33 Respiratory Rate 18 07/22/24 17:33 Blood Pressure 177/92 H 07/22/24 17:33 Blood Pressure Mean 120 H 07/22/24 17:33 Pulse Oximetry 97 07/22/24 17:33 Oxygen Delivery Method Room Air 07/22/24 17:33 Vital Signs Temperature 98 F 07/22/24 17:33 Pulse Rate 62 07/22/24 17:33 Respiratory Rate 18 07/22/24 17:33 Blood Pressure 177/92 H 07/22/24 17:33 Pulse Oximetry 97 07/22/24 17:33 Oxygen Delivery Method Room Air 07/22/24 17:33 Temperature 98 F 07/22/24 17:33 Pulse Rate 62 07/22/24 17:33 Respiratory Rate 18 07/22/24 17:33 Blood Pressure 177/92 H 07/22/24 17:33 Pulse Oximetry 97 07/22/24 17:33 Oxygen Delivery Method Room Air 07/22/24 17:33 Medical Decision Making MDM Narrative Medical decision making narrative: [age] year white female with a diagnosis of hypertension in the past who was on medicine with an elevated blood pressure now but not a worrisome level. I think she should get a blood pressure cuff and check her blood pressure a couple times a day for the next week to 10 days, would make an appointment to see Dr. Hayden in [place] the clinic for primary care. Should she have problems or concerns the interim she can return here. Stressed the blood pressures usually are concerning until her over 240/120 or there about. She was instructed to avoid salt, start walking exercises and weight reduction and consult with her doctor as mentioned above. Discharge Plan Discharge Clinical Impression: Hypertension Patient Disposition: Home, Self-Care Condition: Stable Additional Instructions: See Dr. Lima at the [facility], recommend get a blood pressure cuff and check her blood pressure couple times a day and give her that data. You have been diagnosed with high blood pressure in the past and probably need to be on medication but he certainly do not need to start that immediately. Recommend you avoid salt, exercise regularly, and then consult with your doctor regarding your blood pressure. Your blood pressure is not at a dangerous level now. A dangerous level be 240/140 or higher and probably needs some assistance in the ER or with her regular doctor. at that time. Activity Level: No Restrictions Discharge Diet: Heart Healthy (2 gm sodium, low fat) Prescriptions: No Action cholecalciferol (vitamin D3) [Vitamin D3] 50 mcg (2,000 unit) capsule 50 mcg PO QDAY Follow Up/Referrals: Provider,Not a Local [Primary Care Provider, Family Practice] Stand Alone Forms: Peer.im Info Instructions
== END 2024-07-22 18:23 | disposition home or self-care (01) ==
PROVIDERS: Emergency Provider Family Medicine
DX: I10 Essential (primary) hypertension (principal)
CPT/HCPCS: 99283